=== PATIENT | female | born 1965 | race Caucasian/White ===

== ENCOUNTER 2016-11-12 16:19 | Emergency (ER) | payer OTHER | END 2016-11-12 21:40 | disposition short-term general hospital (02) | LOC: ER 16:19 | DX: J85.1 Abscess of lung with pneumonia (principal); R35.0 Frequency of micturition; R10.12 Left upper quadrant pain; E78.5 Hyperlipidemia, unspecified; F32.9 Major depressive disorder, single episode, unspecified; F41.9 Anxiety disorder, unspecified; I10 Essential (primary) hypertension; Z87.891 Personal history of nicotine dependence; Z79.899 Other long term (current) drug therapy; Z88.0 Allergy status to penicillin; Z88.6 Allergy status to analgesic agent | CPT/HCPCS: 36415; 96361; 96365; 96375; 96376; Q9967 ==